=== PATIENT | male | born 1965 | race Caucasian/White ===

== ENCOUNTER 2016-11-06 05:53 | Day surgery (SDC) | payer BC ==
--- NOTE | 2016-11-04 20:48 | SSS ---
CHIEF COMPLAINT: Need for screening colonoscopy. HISTORY OF PRESENT ILLNESS: Mr. Clay is a 51 year-old male who presented to my office for routine checkup. It was noted that he was over 50 and had never had a colonoscopy. Risks and benefits were discussed. He was agreeable with proceeding. He had no symptoms referable to his bowel, specifically no blood in his bowels or changes in his bowel habits. He has had some right lower quadrant pain recently but it had improved by the time I saw him in the office. PAST MEDICAL HISTORY: Unremarkable. PAST SURGICAL HISTORY: 1. Cardiac catheterization by Dr. Aguilar in 2010 that showed a mildly elevated left ventricular and diastolic pressure, but otherwise showed normal coronaries. 2. Bladder scope in January 2013 that was negative. CURRENT MEDICATIONS: None. ALLERGIES: PENICILLIN. FAMILY HISTORY: Father is healthy. Mother has hypertension. 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 He is and has 1 child. He smokes 1 pack of cigarettes per day. REVIEW OF SYSTEMS: Negative except as per History of Present Illness. PHYSICAL EXAMINATION: VITAL SIGNS: Blood pressure 150/90, pulse 81, weight 295, height 5' 10". GENERAL: He is awake and alert in no acute distress. HEENT: Unremarkable. NECK: Supple. CHEST: Lungs are clear. CARDIOVASCULAR: Regular rate and rhythm without appreciable murmurs. ABDOMEN: Soft, non-tender. EXTREMITIES: Without edema. NEUROLOGIC: Nonfocal. RECTAL: Exam is deferred until the time of colonoscopy. ASSESSMENT: 1. Screening colonoscopy. 2. Recent right lower quadrant pain that has improved. 3. Mild hypertension. PLAN: Colonoscopy on 11/06/16. #[id number] RODOLFO
[2016-11-06] MEDS ORDERED: LACTATED RINGERS 1,000 ML ONE (06:40)
[2016-11-06 07:36] VITALS: TEMP 98.1
[2016-11-06 09:17] VITALS: BP 159/97; O2SAT 99
--- NOTE | 2016-11-06 09:34 | OP ---
DATE OF PROCEDURE: 11/06/16 PREOPERATIVE DIAGNOSIS: 1. Need for screening colonoscopy. POSTOPERATIVE DIAGNOSIS: 1. 0.5 by 0.5 cm ascending colon polyp, biopsied times 4 to obliteration. 2. 0.25 by 0.25 cm sigmoid polyp, biopsied times 1 to obliteration. 3. Otherwise normal colonoscopy to the cecum. PROCEDURE: 1. Colonoscopy. SURGEON: Derrick Guerra MD. ESTIMATED BLOOD LOSS: Less than 1 mL. COMPLICATIONS: The distal half of the colon was viewed over 8 to 10 minutes, which I feel is a little bit quick. This was secondary to his poor airway towards the end of the case despite nasal trumpet and jaw thrust positioning. He has obstructive sleep apnea and did not bring his mask. ANESTHESIA: Propofol 500 mg administered intravenously by Henry Santos CRNA, using monitored anesthesia care. TECHNIQUE: After informed consent was obtained from the patient, the patient was taken to the Endoscopy Suite and placed in the left lateral decubitus position. Vital signs were monitored throughout the procedure. Supplemental oxygen was administered throughout the procedure. After adequate conscious sedation was obtained, digital rectal examination was performed. Only the bottom half of the prostate could be felt and it felt normal in size without nodules. The colonoscope was then advanced into the patient's rectum and up through the sigmoid colon. In the sigmoid colon, a very small polyp was noted and biopsied times one at that time to obliteration. The colonoscope was advanced further, all the way to the ascending colon/cecal region where a 0.5 by 0.5 cm ascending colon polyp was biopsied times four to obliteration. It was difficult to obliterate secondary to it being constantly in motion from his breathing. The usual cecal landmarks were identified and the cecum was photographed. The terminal ileum could not be entered. The colonoscope was then slowly withdrawn. The overall bowel prep was noted to be quite good. There were a few areas of liquid stool and care was taken to try to suction up as much of this as possible. The colon was viewed circumferentially in 360 degree fashion upon withdrawal. About correction through the withdrawal, he became a bit more agitated and we had to maintain his airway with jaw thrust. He had had a nasal trumpet placed at the beginning of the procedure. The second half of the colon was viewed a little bit faster, but I do feel confident that no polyps larger than 1 cm were missed. The colonoscope was retroflexed in his rectum and no significant abnormalities were noted other than some grade 1 internal hemorrhoids. The colonoscope was then unretroflexed and air was suctioned out of the patient's rectum. PLAN: The patient is to followup in my office in 7 to 10 days. We will likely repeat his colonoscopy in 3 to 5 years pending the results of the pathology report. He will need to bring his CPAP mask to his next colonoscopy. #[id number] [facility]ENTERCynthia
[2016-11-06] MEDS ORDERED: LIDOCAINE 1% 10 ML VIAL INJ ONE (12:00)
[2016-11-06] MEDS ORDERED: PROPOFOL 200 MG/20 ML VIAL IV ONE (12:00)
== END 2016-11-06 09:15 | disposition home or self-care (01) ==
LOC: AMB 05:53
PROVIDERS: ATTEND Family Medicine
DX: Z12.11 Encounter for screening for malignant neoplasm of colon (principal); D12.5 Benign neoplasm of sigmoid colon; D12.2 Benign neoplasm of ascending colon; R10.31 Right lower quadrant pain; I10 Essential (primary) hypertension; Z88.0 Allergy status to penicillin

== ENCOUNTER → 2016-12-04 | Outpatient (CLI) | payer BC | LOC: SL 19:45 | PROVIDERS: ATTEND Family Medicine | DX: G47.33 Obstructive sleep apnea (adult) (pediatric) (principal); G47.10 Hypersomnia, unspecified; G47.00 Insomnia, unspecified; R06.83 Snoring; I10 Essential (primary) hypertension ==

== ENCOUNTER → 2019-09-10 | Outpatient (CLI) | payer BC | LOC: GMAE 14:19 | PROVIDERS: ATTEND Family Medicine | DX: R42 Dizziness and giddiness (principal) ==

== ENCOUNTER → 2020-03-12 | Outpatient (CLI) | payer BC ==
--- NOTE | 2020-03-12 12:34 | US ---
EXAM DESCRIPTION: Gall Bladder: ULTRASOUND. CLINICAL HISTORY: EPIGASTRIC PAIN COMPARISON: None. TECHNIQUE: Transabdominal scanning: Erickson-scale and Doppler modes.. Technically difficult study due to patient large body habitus. FINDINGS: Gallbladder: normal size, shape, echogenicity; no intraluminal stones or sludge. No fluid around the gallbladder. No wall thickening. 0.9 mm. Non-tender with transducer pressure. Common bile duct: caliber 5.7 mm within normal limits. Liver: Diffuse increased echogenicity; difficult visualization of the posterior liver and soft tissues posterior to the liver. Contour liver capsule smooth where seen. No fluid around the liver. Intrahepatic biliary ducts normal caliber. Doppler hepatopedal flow portal vein.. 8.4 mm caliber at the vineet hepatis. Long axis right lobe 18 cm. Pancreas: normal size Normal echogenicity. Duct not seen. Aorta: 1.8 cm proximal normal caliber. Right kidney: long axis is 10.7 cm with smooth capsule. Normal cortical thickness and echogenicity. No echogenic stones or hydronephrosis.. IMPRESSION: 1. Technically difficult study due to patient large body habitus. Hepatomegaly and fatty infiltration of the liver. Limited visualization of the posterior liver. Physiologic vascularity. Otherwise unremarkable. Pancreas is negative. 2. Gallbladder and common bile duct are negative. 3. Right kidney unremarkable. Normal caliber of the proximal abdominal aorta. CRITICAL COMMUNICATION: The critical value was communicated directly by Dr. Delatorre via phone call, with Dr. Brown's office nurse, Ms. Laly Sanderson, at approximately 1225 hours, on April 11, 2020. Electronically signed by: Richard Delatorre MD 03/12/2020 12:32 PM CDT
== END ==
LOC: US 10:23
PROVIDERS: ATTEND Family Medicine
DX: K76.0 Fatty (change of) liver, not elsewhere classified (principal)

== ENCOUNTER → 2020-05-04 | Outpatient (CLI) | payer BC | LOC: GMA 11:35 | PROVIDERS: ATTEND Family Medicine | DX: R10.13 Epigastric pain (principal); R07.2 Precordial pain ==